=== PATIENT | male | born 1935 | race Caucasian/White ===

== ENCOUNTER 2018-04-10 18:30 | Inpatient (IN) | payer MEDICARE, BC ==
[~2018-04-10] VITALS: Ht 170.2 cm; Wt 94.3 kg
[2018-04-10] MEDS ORDERED: SODIUM CHLORIDE FLUSH 10ML SYR IVF ONE (19:00)
[2018-04-10 19:14] LABS: BASOPHILS # (AUTO) 0.03 x10^3/uL (0-0.1); BASOPHILS % (AUTO) 0 % (0-1); EOSINOPHILS # (AUTO) 0.22 x10^3/uL (0-0.4); EOSINOPHILS % (AUTO) 2 % (1-7); LYMPHOCYTES # (AUTO) 0.65 x10^3/uL (1-3.4); LYMPHOCYTES % (AUTO) 6 % (22-44); MD NO; MEAN CORPUSCULAR HEMOGLOBIN 30.7 pg (27.5-34.5); MEAN CORPUSCULAR HGB CONC 33.3 g/dL (33.2-36.2); MEAN CORPUSCULAR VOLUME 92.1 fL (81-97); MEAN PLATELET VOLUME 8.7 fL (7.4-10.4); MONOCYTES # (AUTO) 0.99 x10^3/uL (0.2-0.8); MONOCYTES % (AUTO) 10 % (2-9); NEUTROPHILS # (AUTO) 8.27 x10^3/uL (1.8-6.8); NEUTROPHILS % (AUTO) 81 % (42-75); PLATELET COUNT 198 x10^3/uL (130-400); RED CELL DISTRIBUTION WIDTH 15.5 % (9.4-14.8)
[2018-04-10 19:19] LABS: ALBUMIN 3.4 g/dL (3.4-5.0); ANION GAP 6 mmol/L (5-15); CALCIUM 9.1 mg/dL (8.5-10.1); CHLORIDE 108 mmol/L (98-107); INTERNATIONAL NORMALIZED RATIO 1.08 (0.93-1.1); PROTHROMBIN TIME 11.1 Seconds (9.6-11.5)
[2018-04-10] MEDS: HEPARIN 5,000 UNITS/ML, 1ML IV PRN (19:22)
[2018-04-10] MEDS ORDERED: HEPARIN 25,000 UNITS/500ML PMX 500 ML ONE (19:24)
[2018-04-10 19:25] LABS: ALANINE AMINOTRANSFERASE 22 U/L (12-78); ALKALINE PHOSPHATASE 151 U/L (45-117); BILIRUBIN,TOTAL 0.8 mg/dL (0.2-1.0); CREATININE 2.43 mg/dL (0.7-1.3); TOTAL PROTEIN 7.8 g/dL (6.4-8.2)
[2018-04-10 19:26] LABS: MICROSCOPIC INDICATED
[2018-04-10] MEDS: HEPARIN 25,000 UNITS/500ML PMX 500 ML IV PRN (19:32)
[2018-04-10 19:35] LABS: CULTURE INDICATED? NO
[2018-04-10] MEDS ORDERED: GLIP10TA13 PO (19:42)
[2018-04-10] MEDS ORDERED: ATOR80TA PO (19:42)
[2018-04-10] MEDS ORDERED: LISI40TA PO (19:43)
[2018-04-10] MEDS ORDERED: FURO20TA3 PO (19:44)
[2018-04-10] MEDS ORDERED: SITA25TA PO (19:45)
[2018-04-10] MEDS ORDERED: ALBUTEROL SULFATE 2.5 MG/3 ML ONE (19:45)
[2018-04-10] MEDS ORDERED: [UNRECOGNIZED DRUG - OTHER] (19:45)
[2018-04-10] MEDS ORDERED: TIMOLOL (19:46)
[2018-04-10] MEDS ORDERED: ISOSORBIDE (19:47)
[2018-04-10] MEDS ORDERED: HYDR1TAB12 PO (19:47)
[2018-04-10] MEDS ORDERED: ASPI-496 PO (19:47)
[2018-04-10] MEDS ORDERED: SERT100T5 PO (19:48)
[2018-04-10] MEDS ORDERED: ALLO100T30 PO (19:48)
[2018-04-10] MEDS ORDERED: ALBUTEROL/IPRATROPIUM 2.5MG/0.5MG, 3 ML NPPB ONE (20:00)
[2018-04-10 20:36] VITALS: BP 189/90
[2018-04-10] MEDS ORDERED: SODIUM CHLORIDE 0.9% 1,000 ML IV SCH (21:33)
[2018-04-10] MEDS ORDERED: LIDODERM 5% PATCH TD PRN (22:00)
[2018-04-10] MEDS ORDERED: hydrALAzine 20 MG/ML, 1ML IVPush PRN (22:00)
[2018-04-11 00:28] VITALS: BP 184/87
[2018-04-11 01:08] LABS: TROPONIN I 0.951 ng/mL (0.000-0.045)
[2018-04-11] MEDS ORDERED: TEMAZEPAM 15 MG CAPSULE ONE (01:44)
[2018-04-11] MEDS: TEMAZEPAM 15 MG CAPSULE PO PRN (01:51)
[2018-04-11] MEDS: HEPARIN 5,000 UNITS/ML, 1ML IV PRN ×2 (01:52→14:38)
[2018-04-11 04:25] VITALS: BP 167/95
[2018-04-11] MEDS: INSULIN LISPRO 100 UNITS/ML, PEN SQ-INSULIN SCH ×4 (07:33→20:50)
[2018-04-11 08:00] VITALS: BP 166/79
[2018-04-11 08:01] LABS: BASOPHILS % (AUTO) 0 % (0-1); EOSINOPHILS # (AUTO) 0.04 x10^3/uL (0-0.4); EOSINOPHILS % (AUTO) 0 % (1-7); LYMPHOCYTES # (AUTO) 0.81 x10^3/uL (1-3.4); LYMPHOCYTES % (AUTO) 8 % (22-44); MD NO; MEAN CORPUSCULAR HEMOGLOBIN 30.3 pg (27.5-34.5); MEAN CORPUSCULAR VOLUME 91.6 fL (81-97); MEAN PLATELET VOLUME 8.9 fL (7.4-10.4); MONOCYTES # (AUTO) 1.04 x10^3/uL (0.2-0.8); MONOCYTES % (AUTO) 11 % (2-9); NEUTROPHILS % (AUTO) 80 % (42-75); PLATELET COUNT 179 x10^3/uL (130-400); RED BLOOD COUNT 4.21 x10^6/uL (4.38-5.82); RED CELL DISTRIBUTION WIDTH 15.2 % (9.4-14.8)
[2018-04-11 08:06] LABS: ANION GAP 7 mmol/L (5-15); CALCIUM 8.9 mg/dL (8.5-10.1); CHLORIDE 107 mmol/L (98-107); CHOLESTEROL, TOTAL 117 mg/dL (140-239); CREATININE 2.44 mg/dL (0.7-1.3); TRIGLYCERIDES 128 mg/dL (50-200); VLDL CHOLESTEROL 26 mg/dL (0-25)
[2018-04-11 08:07] LABS: HDL CHOL % 33 % (26-37); HDL CHOLESTEROL (DIRECT) 39 mg/dL (40-60); LDL CHOLESTEROL,CALCULATED 52 mg/dL (54-169); LDL/HDL RATIO 1.3 (0.5-3.0)
[2018-04-11 08:09] LABS: TROPONIN I 0.829 ng/mL (0.000-0.045)
[2018-04-11] MEDS: LINAGLIPTIN 5 MG TAB PO SCH (08:19)
[2018-04-11] MEDS: ASPIRIN 81 MG TABLET CHEW PO SCH (08:19)
[2018-04-11] MEDS: SERTRALINE 100MG TABLET PO SCH (08:20)
[2018-04-11] MEDS ORDERED: FUROSEMIDE 40 MG TABLET PO SCH (09:00)
[2018-04-11] MEDS: CLOPIDOGREL 75 MG TABLET PO SCH (09:26)
[2018-04-11] MEDS: CARVEDILOL 12.5 MG TABLET PO SCH ×2 (09:26→17:54)
[2018-04-11] MEDS: AMOXICILLIN/CLAV 875-125MG TABLET PO SCH ×2 (10:52→20:46)
[2018-04-11 12:48] VITALS: BP 137/77
[2018-04-11] MEDS ORDERED: ALBUTEROL/IPRATROPIUM 2.5MG/0.5MG, 3 ML ONE (14:53)
[2018-04-11] MEDS: methylPREDNISolone SOD SUCC 40 MG/ML IVPush SCH (16:27)
[2018-04-11] MEDS: HEPARIN 25,000 UNITS/500ML PMX 500 ML IV PRN (17:53)
[2018-04-11 18:50] VITALS: BP 163/70
[2018-04-11] MEDS: ALBUTEROL/IPRATROPIUM 2.5MG/0.5MG, 3 ML NPPB SCH (18:53)
[2018-04-11] MEDS ORDERED: CETIRIZINE 10 MG TABLET PO ONE (19:30)
[2018-04-11] MEDS: ATORVASTATIN 80 MG TABLET PO SCH (20:46)
[2018-04-11] MEDS: SODIUM CHLORIDE NASAL SPRAY 45ML BOTTLE NAS PRN (21:15)
[2018-04-12 01:15] VITALS: BP 137/74
[2018-04-12 03:00] LABS: BASOPHILS % (AUTO) 0 % (0-1); EOSINOPHILS % (AUTO) 0 % (1-7); LYMPHOCYTES % (AUTO) 8 % (22-44); MD NO; MEAN CORPUSCULAR HGB CONC 33.6 g/dL (33.2-36.2); MEAN CORPUSCULAR VOLUME 92.1 fL (81-97); MEAN PLATELET VOLUME 9.3 fL (7.4-10.4); MONOCYTES # (AUTO) 0.24 x10^3/uL (0.2-0.8); MONOCYTES % (AUTO) 3 % (2-9); NEUTROPHILS # (AUTO) 6.62 x10^3/uL (1.8-6.8); NEUTROPHILS % (AUTO) 89 % (42-75); PLATELET COUNT 162 x10^3/uL (130-400); RED BLOOD COUNT 3.76 x10^6/uL (4.38-5.82); RED CELL DISTRIBUTION WIDTH 15.4 % (9.4-14.8)
[2018-04-12 03:11] LABS: ANION GAP 7 mmol/L (5-15); CALCIUM 8.5 mg/dL (8.5-10.1); CHLORIDE 107 mmol/L (98-107); CREATININE 2.54 mg/dL (0.7-1.3)
[2018-04-12] MEDS: methylPREDNISolone SOD SUCC 40 MG/ML IVPush SCH ×2 (05:19→16:48)
[2018-04-12] MEDS: CARVEDILOL 12.5 MG TABLET PO SCH (05:19)
[2018-04-12] MEDS: ALBUTEROL/IPRATROPIUM 2.5MG/0.5MG, 3 ML NPPB SCH ×4 (07:00→19:50)
[2018-04-12] MEDS: ASPIRIN 81 MG TABLET CHEW PO SCH (08:03)
[2018-04-12] MEDS: CLOPIDOGREL 75 MG TABLET PO SCH (08:03)
[2018-04-12] MEDS: AMOXICILLIN/CLAV 875-125MG TABLET PO SCH ×2 (08:03→21:44)
[2018-04-12] MEDS: INSULIN LISPRO 100 UNITS/ML, PEN SQ-INSULIN SCH ×4 (08:03→21:48)
[2018-04-12] MEDS: LINAGLIPTIN 5 MG TAB PO SCH (08:03)
[2018-04-12] MEDS: SERTRALINE 100MG TABLET PO SCH ×2 (08:04→08:06)
[2018-04-12 08:19] VITALS: BP 171/75
[2018-04-12] MEDS ORDERED: REGADENOSON 0.4 MG/5 ML SYRINGE ONE (08:42)
[2018-04-12] MEDS: HEPARIN 25,000 UNITS/500ML PMX 500 ML IV PRN (13:30)
[2018-04-12 14:50] VITALS: BP 137/83
[2018-04-12 18:02] VITALS: BP 158/75
[2018-04-12] MEDS: CARVEDILOL 25 MG TABLET PO SCH (18:04)
[2018-04-12 19:30] VITALS: BP 139/72
[2018-04-12] MEDS: ATORVASTATIN 80 MG TABLET PO SCH (21:44)
[2018-04-12] MEDS: SODIUM CHLORIDE NASAL SPRAY 45ML BOTTLE NAS PRN (21:48)
[2018-04-13 01:02] VITALS: BP 118/70
[2018-04-13] MEDS: methylPREDNISolone SOD SUCC 40 MG/ML IVPush SCH ×2 (05:22→17:07)
[2018-04-13] MEDS: CARVEDILOL 25 MG TABLET PO SCH ×2 (05:22→17:09)
[2018-04-13] MEDS: ALBUTEROL/IPRATROPIUM 2.5MG/0.5MG, 3 ML NPPB SCH ×4 (07:00→18:50)
[2018-04-13 07:15] LABS: ANION GAP 10 mmol/L (5-15); CALCIUM 8.3 mg/dL (8.5-10.1); CHLORIDE 100 mmol/L (98-107); CREATININE 2.82 mg/dL (0.7-1.3)
[2018-04-13 08:07] VITALS: BP 125/86
[2018-04-13] MEDS: INSULIN LISPRO 100 UNITS/ML, PEN SQ-INSULIN SCH ×4 (08:49→22:02)
[2018-04-13] MEDS: ASPIRIN 81 MG TABLET CHEW PO SCH (08:50)
[2018-04-13] MEDS: LINAGLIPTIN 5 MG TAB PO SCH (08:50)
[2018-04-13] MEDS: AMOXICILLIN/CLAV 875-125MG TABLET PO SCH ×2 (08:50→22:00)
[2018-04-13] MEDS: CLOPIDOGREL 75 MG TABLET PO SCH (08:50)
[2018-04-13] MEDS: SERTRALINE 100MG TABLET PO SCH (08:50)
[2018-04-13] MEDS: HEPARIN 25,000 UNITS/500ML PMX 500 ML IV PRN (08:56)
[2018-04-13] MEDS ORDERED: FUROSEMIDE 40 MG TABLET PO SCH (09:00)
[2018-04-13] MEDS: SODIUM BICARBONATE 8.4% 75 MEQ in SODIUM CHLORIDE 0.45% 1,000 ML IV SCH ×2 (10:54→22:03)
[2018-04-13] MEDS ORDERED: GUAIFENESIN/COD200MG-20MG/10ML LIQUID PO PRN (12:30)
[2018-04-13 13:40] VITALS: BP 104/71
[2018-04-13 16:58] VITALS: BP 120/71
[2018-04-13 18:47] VITALS: BP 156/74
[2018-04-13 20:22] LABS: MICROSCOPIC INDICATED
[2018-04-13] MEDS: GUAIFENESIN/COD200MG-20MG/10ML LIQUID PO PRN (22:00)
[2018-04-13] MEDS: ATORVASTATIN 80 MG TABLET PO SCH (22:00)
[2018-04-13] MEDS: INSULIN GLARGINE 100 UNITS/ML, PEN SQ-INSULIN SCH (22:01)
[2018-04-13] MEDS: SODIUM CHLORIDE NASAL SPRAY 45ML BOTTLE NAS PRN (22:05)
[2018-04-14 01:45] VITALS: BP 125/71
[2018-04-14] MEDS: GUAIFENESIN/COD200MG-20MG/10ML LIQUID PO PRN ×3 (02:05→20:57)
[2018-04-14] MEDS: HEPARIN 25,000 UNITS/500ML PMX 500 ML IV PRN (04:44)
[2018-04-14 05:24] LABS: CHLORIDE 102 mmol/L (98-107)
[2018-04-14 05:28] VITALS: BP 146/81
[2018-04-14 05:29] LABS: ALANINE AMINOTRANSFERASE 21 U/L (12-78); ALBUMIN 2.5 g/dL (3.4-5.0); ALKALINE PHOSPHATASE 85 U/L (45-117); ANION GAP 10 mmol/L (5-15); BILIRUBIN,TOTAL 0.8 mg/dL (0.2-1.0); CALCIUM 7.9 mg/dL (8.5-10.1); CREATININE 2.63 mg/dL (0.7-1.3); TOTAL PROTEIN 5.8 g/dL (6.4-8.2)
[2018-04-14 05:32] LABS: BASOPHILS % (AUTO) 0 % (0-1); EOSINOPHILS % (AUTO) 0 % (1-7); LYMPHOCYTES % (AUTO) 4 % (22-44); MD NO; MEAN CORPUSCULAR HEMOGLOBIN 30.4 pg (27.5-34.5); MEAN CORPUSCULAR HGB CONC 33.3 g/dL (33.2-36.2); MEAN CORPUSCULAR VOLUME 91.3 fL (81-97); MEAN PLATELET VOLUME 9.5 fL (7.4-10.4); MONOCYTES # (AUTO) 0.62 x10^3/uL (0.2-0.8); MONOCYTES % (AUTO) 4 % (2-9); NEUTROPHILS # (AUTO) 14.63 x10^3/uL (1.8-6.8); NEUTROPHILS % (AUTO) 92 % (42-75); PLATELET COUNT 146 x10^3/uL (130-400)
[2018-04-14] MEDS: methylPREDNISolone SOD SUCC 40 MG/ML IVPush SCH ×2 (05:33→17:35)
[2018-04-14] MEDS: CARVEDILOL 25 MG TABLET PO SCH ×2 (05:33→17:35)
[2018-04-14 06:39] VITALS: BP 135/69
[2018-04-14] MEDS: ALBUTEROL/IPRATROPIUM 2.5MG/0.5MG, 3 ML NPPB SCH (07:00)
[2018-04-14] MEDS: ASPIRIN 81 MG TABLET CHEW PO SCH (08:09)
[2018-04-14] MEDS: SERTRALINE 100MG TABLET PO SCH (08:09)
[2018-04-14] MEDS: INSULIN LISPRO 100 UNITS/ML, PEN SQ-INSULIN SCH ×4 (08:09→20:59)
[2018-04-14] MEDS: CLOPIDOGREL 75 MG TABLET PO SCH (08:09)
[2018-04-14] MEDS: LINAGLIPTIN 5 MG TAB PO SCH (08:09)
[2018-04-14] MEDS: AMOXICILLIN/CLAV 875-125MG TABLET PO SCH ×2 (08:09→20:57)
[2018-04-14] MEDS: SODIUM BICARBONATE 8.4% 75 MEQ in SODIUM CHLORIDE 0.45% 1,000 ML IV SCH ×2 (08:59→19:55)
[2018-04-14] MEDS: SODIUM CHLORIDE NASAL SPRAY 45ML BOTTLE NAS PRN ×2 (09:37→20:59)
[2018-04-14] MEDS ORDERED: ALBUTEROL/IPRATROPIUM 2.5MG/0.5MG, 3 ML NPPB PRN (11:00)
[2018-04-14 13:30] VITALS: BP 135/69
[2018-04-14 14:53] LABS: CHLORIDE,URINE RANDOM < 10 mmol/L; POTASSIUM,URINE RANDOM 31 mmol/L; SODIUM,URINE RANDOM 21 mmol/L
[2018-04-14] MEDS: DOCUSATE 100 MG CAPSULE PO PRN (17:42)
[2018-04-14 18:35] VITALS: BP 151/68
[2018-04-14] MEDS: ATORVASTATIN 80 MG TABLET PO SCH (20:57)
[2018-04-14] MEDS: INSULIN GLARGINE 100 UNITS/ML, PEN SQ-INSULIN SCH (20:58)
[2018-04-15] MEDS: TEMAZEPAM 15 MG CAPSULE PO PRN ×2 (00:54→23:03)
[2018-04-15] MEDS: HEPARIN 25,000 UNITS/500ML PMX 500 ML IV PRN (00:56)
[2018-04-15 02:00] VITALS: BP 148/62
[2018-04-15] MEDS: CARVEDILOL 25 MG TABLET PO SCH ×2 (05:15→17:26)
[2018-04-15] MEDS: methylPREDNISolone SOD SUCC 40 MG/ML IVPush SCH (05:15)
[2018-04-15 05:23] VITALS: BP 137/77
[2018-04-15 05:39] LABS: BASOPHILS % (AUTO) 0 % (0-1); EOSINOPHILS % (AUTO) 0 % (1-7); LYMPHOCYTES % (AUTO) 4 % (22-44); MD NO; MEAN CORPUSCULAR HEMOGLOBIN 31.5 pg (27.5-34.5); MEAN CORPUSCULAR HGB CONC 34.5 g/dL (33.2-36.2); MEAN CORPUSCULAR VOLUME 91.1 fL (81-97); MEAN PLATELET VOLUME 9.5 fL (7.4-10.4); MONOCYTES # (AUTO) 0.69 x10^3/uL (0.2-0.8); MONOCYTES % (AUTO) 5 % (2-9); NEUTROPHILS # (AUTO) 14.18 x10^3/uL (1.8-6.8); NEUTROPHILS % (AUTO) 92 % (42-75); PLATELET COUNT 133 x10^3/uL (130-400); RED BLOOD COUNT 2.91 x10^6/uL (4.38-5.82); RED CELL DISTRIBUTION WIDTH 15.5 % (9.4-14.8)
[2018-04-15 06:03] LABS: CHLORIDE 98 mmol/L (98-107)
[2018-04-15 06:16] LABS: % IRON SATURATION 37 % (20-55); ALANINE AMINOTRANSFERASE 19 U/L (12-78); ALBUMIN 2.4 g/dL (3.4-5.0); ALKALINE PHOSPHATASE 79 U/L (45-117); ANION GAP 12 mmol/L (5-15); BILIRUBIN,TOTAL 0.3 mg/dL (0.2-1.0); CALCIUM 7.9 mg/dL (8.5-10.1); CREATININE 2.23 mg/dL (0.7-1.3); IRON LEVEL 87 mcg/dL (65-175); TOTAL IRON BINDING CAPACITY 238 mcg/dL (250-450); TOTAL PROTEIN 5.4 g/dL (6.4-8.2)
[2018-04-15] MEDS ORDERED: PHARMACY MAY ADJ FOR RENAL FX MC PRN (08:30)
[2018-04-15] MEDS: AMOXICILLIN/CLAV 875-125MG TABLET PO SCH ×2 (09:09→22:45)
[2018-04-15] MEDS: CLOPIDOGREL 75 MG TABLET PO SCH (09:10)
[2018-04-15] MEDS: ASPIRIN 81 MG TABLET CHEW PO SCH (09:11)
[2018-04-15] MEDS: LINAGLIPTIN 5 MG TAB PO SCH (09:11)
[2018-04-15] MEDS: SERTRALINE 100MG TABLET PO SCH (09:17)
[2018-04-15] MEDS: INSULIN LISPRO 100 UNITS/ML, PEN SQ-INSULIN SCH ×4 (09:17→22:46)
[2018-04-15] MEDS: SODIUM BICARBONATE 8.4% 75 MEQ in SODIUM CHLORIDE 0.45% 1,000 ML IV SCH (09:18)
[2018-04-15] MEDS ORDERED: SODIUM BICARBONATE 8.4% 75 MEQ in SODIUM CHLORIDE 0.45% 1,000 ML IV SCH ×2 (09:30→18:00)
[2018-04-15] MEDS: DOCUSATE 100 MG CAPSULE PO PRN (12:35)
[2018-04-15 14:33] VITALS: BP 125/73
[2018-04-15 20:21] VITALS: BP 123/72
[2018-04-15] MEDS: GUAIFENESIN/COD200MG-20MG/10ML LIQUID PO PRN (22:44)
[2018-04-15] MEDS: ATORVASTATIN 80 MG TABLET PO SCH (22:45)
[2018-04-15] MEDS: SODIUM CHLORIDE NASAL SPRAY 45ML BOTTLE NAS PRN (22:45)
[2018-04-15] MEDS: INSULIN GLARGINE 100 UNITS/ML, PEN SQ-INSULIN SCH (22:46)
[2018-04-15] MEDS ORDERED: ALBUTEROL/IPRATROPIUM 2.5MG/0.5MG, 3 ML ONE (22:48)
[2018-04-15] MEDS ORDERED: ALBUTEROL/IPRATROPIUM 2.5MG/0.5MG, 3 ML NPPB PRN (23:00)
[2018-04-16 02:11] VITALS: BP 137/76
[2018-04-16 04:57] VITALS: BP 148/83
[2018-04-16] MEDS: CARVEDILOL 25 MG TABLET PO SCH ×2 (04:57→17:31)
[2018-04-16] MEDS: DOCUSATE 100 MG CAPSULE PO PRN (04:57)
[2018-04-16 05:15] LABS: ALBUMIN 2.5 g/dL (3.4-5.0); CALCIUM 8.2 mg/dL (8.5-10.1); CHLORIDE 100 mmol/L (98-107)
[2018-04-16 05:17] LABS: BASOPHILS # (AUTO) 0.01 x10^3/uL (0-0.1); BASOPHILS % (AUTO) 0 % (0-1); EOSINOPHILS % (AUTO) 0 % (1-7); LYMPHOCYTES # (AUTO) 0.75 x10^3/uL (1-3.4); LYMPHOCYTES % (AUTO) 5 % (22-44); MD NO; MEAN CORPUSCULAR HEMOGLOBIN 31.1 pg (27.5-34.5); MEAN CORPUSCULAR VOLUME 91.6 fL (81-97); MEAN PLATELET VOLUME 9.1 fL (7.4-10.4); MONOCYTES # (AUTO) 1.25 x10^3/uL (0.2-0.8); MONOCYTES % (AUTO) 8 % (2-9); NEUTROPHILS # (AUTO) 14.18 x10^3/uL (1.8-6.8); NEUTROPHILS % (AUTO) 88 % (42-75); PLATELET COUNT 134 x10^3/uL (130-400); RED BLOOD COUNT 2.94 x10^6/uL (4.38-5.82); RED CELL DISTRIBUTION WIDTH 15.4 % (9.4-14.8)
[2018-04-16 05:21] LABS: ALANINE AMINOTRANSFERASE 18 U/L (12-78); ALKALINE PHOSPHATASE 78 U/L (45-117); ANION GAP 10 mmol/L (5-15); BILIRUBIN,TOTAL 0.3 mg/dL (0.2-1.0); CREATININE 2.08 mg/dL (0.7-1.3); TOTAL PROTEIN 5.5 g/dL (6.4-8.2)
[2018-04-16 07:32] VITALS: BP 149/79
[2018-04-16] MEDS: INSULIN LISPRO 100 UNITS/ML, PEN SQ-INSULIN SCH ×4 (07:53→21:47)
[2018-04-16] MEDS: SERTRALINE 100MG TABLET PO SCH (07:54)
[2018-04-16] MEDS: CLOPIDOGREL 75 MG TABLET PO SCH (07:55)
[2018-04-16] MEDS: ASPIRIN 81 MG TABLET CHEW PO SCH (07:55)
[2018-04-16] MEDS: LINAGLIPTIN 5 MG TAB PO SCH (07:55)
[2018-04-16] MEDS: AMOXICILLIN/CLAV 875-125MG TABLET PO SCH ×2 (07:56→21:46)
[2018-04-16] MEDS ORDERED: AMPICILLIN 500MG CAPSULE ONE (07:58)
[2018-04-16] MEDS: SODIUM CHLORIDE 0.9% 1,000 ML IV SCH ×2 (08:11→21:50)
[2018-04-16 14:04] VITALS: BP 171/68
[2018-04-16 14:47] VITALS: BP 151/78
[2018-04-16 19:42] VITALS: BP 160/75
[2018-04-16] MEDS: ATORVASTATIN 80 MG TABLET PO SCH (21:46)
[2018-04-16] MEDS: TEMAZEPAM 15 MG CAPSULE PO PRN (21:48)
[2018-04-16] MEDS: INSULIN GLARGINE 100 UNITS/ML, PEN SQ-INSULIN SCH (21:48)
[2018-04-17 01:21] VITALS: BP 149/67
[2018-04-17] MEDS: SODIUM CHLORIDE 0.9% 1,000 ML IV SCH (04:30)
[2018-04-17 05:20] LABS: MEAN CORPUSCULAR HEMOGLOBIN 30.7 pg (27.5-34.5); MEAN CORPUSCULAR HGB CONC 33.4 g/dL (33.2-36.2); MEAN CORPUSCULAR VOLUME 91.7 fL (81-97); MEAN PLATELET VOLUME 9.4 fL (7.4-10.4); PLATELET COUNT 146 x10^3/uL (130-400); RED BLOOD COUNT 2.87 x10^6/uL (4.38-5.82); RED CELL DISTRIBUTION WIDTH 15.7 % (9.4-14.8)
[2018-04-17 05:29] LABS: CHLORIDE 104 mmol/L (98-107)
[2018-04-17 05:45] LABS: ALANINE AMINOTRANSFERASE 18 U/L (12-78); ALBUMIN 2.3 g/dL (3.4-5.0); ALKALINE PHOSPHATASE 75 U/L (45-117); ANION GAP 7 mmol/L (5-15); BILIRUBIN,TOTAL 0.3 mg/dL (0.2-1.0); CALCIUM 8.4 mg/dL (8.5-10.1); TOTAL PROTEIN 5.4 g/dL (6.4-8.2)
[2018-04-17 06:15] LABS: BASOPHILS % (AUTO) 0 % (0-1); EOSINOPHILS # (AUTO) 0.09 x10^3/uL (0-0.4); EOSINOPHILS % (AUTO) 1 % (1-7); LYMPHOCYTES # (AUTO) 1.24 x10^3/uL (1-3.4); LYMPHOCYTES % (AUTO) 8 % (22-44); MD SCAN; MONOCYTES # (AUTO) 1.45 x10^3/uL (0.2-0.8); MONOCYTES % (AUTO) 9 % (2-9); NEUTROPHILS # (AUTO) 12.93 x10^3/uL (1.8-6.8); NEUTROPHILS % (AUTO) 82 % (42-75)
[2018-04-17 06:35] VITALS: BP 150/80
[2018-04-17] MEDS: CARVEDILOL 25 MG TABLET PO SCH ×2 (06:39→17:34)
[2018-04-17] MEDS: INSULIN LISPRO 100 UNITS/ML, PEN SQ-INSULIN SCH ×4 (07:00→21:00)
[2018-04-17] MEDS: LINAGLIPTIN 5 MG TAB PO SCH (09:35)
[2018-04-17] MEDS: AMOXICILLIN/CLAV 875-125MG TABLET PO SCH ×2 (09:35→19:48)
[2018-04-17] MEDS: CLOPIDOGREL 75 MG TABLET PO SCH (09:35)
[2018-04-17] MEDS: SERTRALINE 100MG TABLET PO SCH (09:35)
[2018-04-17] MEDS: ASPIRIN 81 MG TABLET CHEW PO SCH (09:35)
[2018-04-17] MEDS: AMLODIPINE 5 MG TABLET PO SCH (09:35)
[2018-04-17 12:43] VITALS: BP 147/80
[2018-04-17 19:07] VITALS: BP 158/63
[2018-04-17] MEDS: GUAIFENESIN/COD200MG-20MG/10ML LIQUID PO PRN (19:48)
[2018-04-17] MEDS: ATORVASTATIN 80 MG TABLET PO SCH (19:48)
[2018-04-17] MEDS: INSULIN GLARGINE 100 UNITS/ML, PEN SQ-INSULIN SCH (21:00)
[2018-04-17] MEDS: TEMAZEPAM 15 MG CAPSULE PO PRN (21:56)
[2018-04-18 02:04] VITALS: BP 137/63
[2018-04-18 05:12] LABS: CALCIUM 8.1 mg/dL (8.5-10.1); CHLORIDE 107 mmol/L (98-107)
[2018-04-18 05:19] LABS: ALANINE AMINOTRANSFERASE 18 U/L (12-78); ALBUMIN 2.1 g/dL (3.4-5.0); ALKALINE PHOSPHATASE 75 U/L (45-117); ANION GAP 7 mmol/L (5-15); BILIRUBIN,TOTAL 0.7 mg/dL (0.2-1.0)
[2018-04-18 06:14] VITALS: BP 154/73
[2018-04-18] MEDS: CARVEDILOL 25 MG TABLET PO SCH (06:16)
[2018-04-18] MEDS: GUAIFENESIN/COD200MG-20MG/10ML LIQUID PO PRN (07:31)
[2018-04-18] MEDS: INSULIN LISPRO 100 UNITS/ML, PEN SQ-INSULIN SCH (07:31)
[2018-04-18] MEDS: SERTRALINE 100MG TABLET PO SCH ×2 (07:36→07:40)
[2018-04-18] MEDS: CLOPIDOGREL 75 MG TABLET PO SCH ×2 (07:36→09:06)
[2018-04-18] MEDS: LINAGLIPTIN 5 MG TAB PO SCH (07:36)
[2018-04-18] MEDS: AMLODIPINE 5 MG TABLET PO SCH (07:37)
[2018-04-18] MEDS: ASPIRIN 81 MG TABLET CHEW PO SCH ×2 (07:37→09:06)
[2018-04-18 08:20] LABS: MEAN CORPUSCULAR HEMOGLOBIN 30.8 pg (27.5-34.5); MEAN CORPUSCULAR HGB CONC 33.7 g/dL (33.2-36.2); MEAN CORPUSCULAR VOLUME 91.4 fL (81-97); MEAN PLATELET VOLUME 9.7 fL (7.4-10.4); PLATELET COUNT 141 x10^3/uL (130-400); RED CELL DISTRIBUTION WIDTH 15.8 % (9.4-14.8)
[2018-04-18] MEDS ORDERED: SODIUM CHLORIDE 0.9% 1,000 ML IV SCH (08:30)
[2018-04-18 08:55] LABS: BASOPHILS # (AUTO) 0.02 x10^3/uL (0-0.1); BASOPHILS % (AUTO) 0 % (0-1); EOSINOPHILS # (AUTO) 0.03 x10^3/uL (0-0.4); EOSINOPHILS % (AUTO) 0 % (1-7); LYMPHOCYTES # (AUTO) 1.03 x10^3/uL (1-3.4); LYMPHOCYTES % (AUTO) 7 % (22-44); MD SCAN; MONOCYTES # (AUTO) 1.02 x10^3/uL (0.2-0.8); MONOCYTES % (AUTO) 7 % (2-9); NEUTROPHILS % (AUTO) 86 % (42-75)
[2018-04-18] MEDS ORDERED: CARV25TA12 PO (09:29)
[2018-04-18] MEDS ORDERED: CLOP75TA PO (09:29)
[2018-04-18] MEDS ORDERED: AMLO5TAB7 PO (09:29)
[2018-04-18] MEDS ORDERED: PRED10TA14 PO (09:31)
[2018-04-18] MEDS ORDERED: FURO40TA6 PO (11:34)
[2018-04-18] MEDS ORDERED: POTA20PA25 PO (11:35)
== END 2018-04-18 12:19 | disposition home or self-care (01) | DRG 280 ==
LOC: ED 18:39 → EDIP 19:47 → 5SO 20:29 → DCLOUNGE 04-18 11:50
PROVIDERS: ADMIT Internal Medicine; ATTEND Family Medicine
DX: I21.4 Non-ST elevation (NSTEMI) myocardial infarction (principal); J18.9 Pneumonia, unspecified organism; E43 Unspecified severe protein-calorie malnutrition; N17.0 Acute kidney failure with tubular necrosis; I50.43 Acute on chronic combined systolic (congestive) and diastolic (congestive) heart failure; I13.0 Hypertensive heart and chronic kidney disease with heart failure and stage 1 through stage 4 chronic kidney disease, or unspecified chronic kidney disease; J44.0 Chronic obstructive pulmonary disease with (acute) lower respiratory infection; N18.4 Chronic kidney disease, stage 4 (severe); I50.9 Heart failure, unspecified; E11.21 Type 2 diabetes mellitus with diabetic nephropathy; E11.22 Type 2 diabetes mellitus with diabetic chronic kidney disease; D64.9 Anemia, unspecified; E11.51 Type 2 diabetes mellitus with diabetic peripheral angiopathy without gangrene; E78.5 Hyperlipidemia, unspecified; E83.39 Other disorders of phosphorus metabolism; E86.0 Dehydration; I48.91 Unspecified atrial fibrillation; I34.0 Nonrheumatic mitral (valve) insufficiency; I27.20 Pulmonary hypertension, unspecified; I25.2 Old myocardial infarction; I25.10 Atherosclerotic heart disease of native coronary artery without angina pectoris; F32.9 Major depressive disorder, single episode, unspecified; G47.33 Obstructive sleep apnea (adult) (pediatric); I16.0 Hypertensive urgency; I25.5 Ischemic cardiomyopathy; R09.02 Hypoxemia; Z80.1 Family history of malignant neoplasm of trachea, bronchus and lung; Z87.891 Personal history of nicotine dependence; Z95.0 Presence of cardiac pacemaker; Z95.1 Presence of aortocoronary bypass graft; Z95.810 Presence of automatic (implantable) cardiac defibrillator; Z68.32 Body mass index [BMI] 32.0-32.9, adult; M10.9 Gout, unspecified
CPT/HCPCS: 36415; 71045; 71046; 71250; 78452; 80048; 80053; 80061; 81001; 82274; 82436; 82728; 82962; 83010; 83540; 83550; 83605; 83615; 83735; 83880; 84100; 84133; 84145; 84300; 84484; 84550; 85025; 85520; 85610; 85730; 87040; 87070; 87205; 93005; 93017; 93306; 94640; 99291; G0378; J1644; J2785; J7620; A9502; C9898; J0360; J1815; J2920; J7030; J7512